=== PATIENT | male | born 2000 | race Caucasian/White ===

== ENCOUNTER 2018-03-03 23:37 | Emergency (ER) | payer SELFPAY ==
[~2018-03-03] VITALS: Ht 165.1 cm; Wt 64.1 kg
[2018-03-03 23:45] VITALS: BP 144/92; Ht 165.1 cm; Wt 64.1 kg
== END 2018-03-04 00:33 | disposition home or self-care (01) ==
LOC: ED 23:37
DX: K12.1 Other forms of stomatitis (principal)